=== PATIENT | female | born 2000 | race Caucasian/White ===

== ENCOUNTER 2019-05-07 20:37 | Emergency (ER) | payer OTHER ==
[~2019-05-07] VITALS: Ht 154.9 cm; Wt 94.5 kg
[~2019-05-07 20:37] MED LIST: NITR-65 PO
--- NOTE | 2019-05-07 20:54 | ED Integumentary General ---
General Stated Complaint: SCRATCH ON ARM - BLOOD CONTANMINATION Source: patient Exam Limitations: no limitations History of Present Illness Date Seen by Provider: May 07, 2019 Time Seen by Provider: 20:52 Initial Comments To ER with c/o scratch on volar left forearm from residents fingernail. 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 The resident had a blister that "popped" and landed directly on this scratch on her forearm. Selene is 29 weeks . Timing/Duration: constant Severity: mild Location: none Associated Symptoms: denies symptoms Allergies and Home Medications Allergies Coded Allergies: No Known Drug Allergies (Unverified , 04/12/14) Home Medications Nitrofurantoin/Nitrofuran Mac 100 Mg Capsule, 1 EACH PO BID FOR INFECTION Prescribed by: ASHLEY MARRERO on 04/12/14 0142 Patient Home Medication List Home Medication List Reviewed: Yes Review of Systems Review of Systems Constitutional: see HPI EENTM: see HPI Respiratory: no symptoms reported Cardiovascular: no symptoms reported Genitourinary: no symptoms reported Musculoskeletal: no symptoms reported Skin: no symptoms reported Psychiatric/Neurological: No Symptoms Reported Endocrine: No Symptoms Reported Hematologic/Lymphatic: No Symptoms Reported Past Achrucc-Mueffh-Mikybn Hx Patient Social History Recent Foreign Travel: No Contact w/Someone Who Travel: No Seasonal Allergies Seasonal Allergies: No Past Medical History Gallbladder Physical Exam Vital Signs Vital Signs - First Documented 05/07/19 20:44 Temp 37.0 Pulse 102 Resp 18 B/P (MAP) 119/77 (91) Pulse Ox 99 O2 Delivery Room Air Capillary Refill : General Appearance: WD/WN, no apparent distress HEENT: PERRL/EOMI, normal ENT inspection Neck: non-tender, full range of motion Respiratory: no respiratory distress, no accessory muscle use Gastrointestinal: normal bowel sounds, non tender Neurologic/Psychiatric: alert, normal mood/affect, oriented x 3 Skin: normal color, warm/dry Skin Problem Character: other (less than 1mm scratch without bleeding to volar left forearm. ) Progress/Results/Core Measures Results/Orders My Orders Orders - JOSEPH PERSAUD APRN Hiv 1&2 Antibody (05/07/19 21:11) Hepatitis C Antibody (05/07/19 21:11) Hepatitis B Surface Antibody (05/07/19 21:11) Vital Signs/I&O 05/07/19 20:44 Temp 37.0 Pulse 102 Resp 18 B/P (MAP) 119/77 (91) Pulse Ox 99 O2 Delivery Room Air Departure Impression Primary Impression: Exposure to bloodborne pathogen Disposition: HOME, SELF-CARE Condition: Stable Departure-Patient Inst. Decision time for Depature: 20:57 Referrals: NO,LOCAL PHYSICIAN (PCP/Family) Primary Care Physician Patient Instructions: NO INSTRUCTIONS GIVEN Add. Discharge Instructions: 1. You must call occupational health thursday for an appointment to be seen 2. Return to ER for any concerns 3. The source patient (resident who scratched you) should be tested as well for hiv 1&2, Hep C antibody, Hep B Antigen. JOSEPH PERSAUD [employer] May 07, 2019 20:54 POS
[2019-05-07 21:27] VITALS: BP 110/88
== END 2019-05-07 21:27 | disposition home or self-care (01) ==
LOC: EDUNIT# 20:37 → ER 20:42
DX: O9A.213 Injury, poisoning and certain other consequences of external causes complicating pregnancy, third trimester (principal); S50.812A Abrasion of left forearm, initial encounter; Z77.21 Contact with and (suspected) exposure to potentially hazardous body fluids; Z3A.29 29 weeks gestation of pregnancy; W50.4XXA Accidental scratch by another person, initial encounter
CPT/HCPCS: 99281